=== PATIENT | female | born 1955 | race Caucasian/White ===

== ENCOUNTER 2018-05-12 13:14 | Emergency (ER) | payer OTHER ==
[2018-05-12 13:24] VITALS: BMI 25.7
[2018-05-12] MEDS ORDERED: SODIUM CHLORIDE 1,000 ML IV STA (13:26)
--- NOTE | 2018-05-12 13:31 | PDOC ---
History of Present Illness - General Chief Complaint: Pain Stated Complaint: ABD PAIN, URINARY SX Time Seen by Provider: 05/12/18 13:21 History Source: Patient Exam Limitations: No Limitations - History of Present Illness Travel History: No Initial Comments: 05/12/18 13:26 62 y/o femal with abdominal pain and dysuria since . Patient denies back pain, fever or chills. Vomited once. Decrease appetite. Took Advil yesterday. No sick contacts, cough, or diarrhea. Some discomfort in the chest/ esophagus, but no SOB, or radiation to neck, arm or back. Timing/Duration: reports: intermittent Quality: reports: mild Abdominal Pain Onset Location: reports: epigastric Pain Radiation: reports: no radiation Past History - Past Medical History Allergies/Adverse Reactions: Allergies Allergy/AdvReac Type Severity Reaction Status Date / Time Penicillins Allergy Verified 05/12/18 13:15 Home Medications: Ambulatory Orders Atorvastatin Calcium 20 mg PO HS 05/12/18 Ciprofloxacin [Cipro (Restricted To Id)] 250 mg PO BID #10 tablet 05/12/18 Metformin HCl [Glucophage] 500 mg PO BID 05/12/18 COPD: No Diabetes: Yes Hypercholesterolemia: Yes - Suicide/Smoking/Psychosocial Hx Smoking History: Never smoked Have you smoked in the past 12 months: No Hx Alcohol Use: No Review of Systems - Review of Systems Able to Perform ROS?: Yes Is the patient limited Nepalese proficient: No Constitutional: No: Chills, Fever HEENTM: No: Throat Pain Respiratory: No: Cough, Shortness of Breath Cardiac (ROS): Yes: Chest Pain ABD/GI: Yes: Vomiting. No: Diarrhea, Nausea Musculoskeletal: No: Back Pain All Other Systems: Reviewed and Negative *Physical Exam - Vital Signs Last Vital Signs Temp Pulse Resp BP Pulse Ox 100 F H 88 16 138/74 98 05/12/18 13:15 05/12/18 13:15 05/12/18 13:15 05/12/18 13:15 05/12/18 13:15 - Physical Exam General Appearance: Yes: Nourished, Appropriately Dressed. No: Apparent Distress HEENT: positive: EOMI, BENNY, Normal ENT Inspection, Normal Voice, Symmetrical, Pharynx Normal Neck: positive: Trachea midline, Normal Thyroid, Supple. negative: Tender, Rigid, Carotid bruit Respiratory/Chest: positive: Lungs Clear, Normal Breath Sounds. negative: Chest Tender, Respiratory Distress Cardiovascular: positive: Regular Rhythm, Regular Rate, S1, S2. negative: Edema , JVD, Murmur Vascular Pulses: Femoral (R): 4+, Femoral (L): 4+, Carotid (R): 4+, Carotid (L) : 4+, Dorsalis-Pedis (R): 4+, Doralis-Pedis (L): 4+ Gastrointestinal/Abdominal: positive: Normal Bowel Sounds, Flat, Soft. negative : Tender (no RLQ or LLQ tenderness, no RUQ or LUQ tenderness, +BS, no epigastric tenderness no CVA tenderness), Organomegaly, Pulsatile Mass Lymphatic: negative: Adenopathy, Tenderness, Other Musculoskeletal: positive: Normal Inspection. negative: CVA Tenderness Extremity: positive: Normal Capillary Refill, Normal Inspection, Normal Range of Motion. negative: Tender Integumentary: positive: Normal Color, Dry, Warm Neurologic: positive: service attendant II-XII NML intact, Fully Oriented, Alert, Normal Mood/ Affect, Normal Response, Motor Strength 5/5 Heart Score/ECG Review - ECG Intrepretation Rhythm: Regular Rhythm Comment:: 05/12/18 13:44 At 1339 NSR at 78 No STEMI - [place]: Normal - ST and T Early Repolarization: No Non Specific ST-T Wave changes: No - ECG Impressions Normal ECG: Yes ED Treatment Course - LABORATORY CBC & Chemistry Diagram: 05/12/18 13:50 05/12/18 14:28 Progress Note - Progress Note Progress Note: Pt is feeling better, appears to have UTI. WBC and rest of labs normal. I do not see any sign of pyelonephritis as this time. Will place on Cipro 250 mg 2x/day for 5 days Fluids, rest, Tylenol If worsen return to ER Pt is in agreement with plan. *DC/Admit/Observation/Transfer Diagnosis at time of Disposition: UTI (urinary tract infection) Qualifiers: Urinary tract infection type: acute cystitis Hematuria presence: without hematuria Qualified Code(s): N30.00 - Acute cystitis without hematuria - Discharge Dispostion Disposition: HOME Condition at time of disposition: Stable Decision to Admit order: No - Referrals - Patient Instructions Printed Discharge Instructions: DI for Urinary Tract Infection (UTI) Additional Instructions: Fluids, rest, Motrin/Tylenol Cipro 250 mg 2x/day for 5 days If worsen return to ER - Post Discharge Activity
[2018-05-12 13:34] LABS: PH,URINE 5.5 (4.5-8); URINE BILIRUBIN Negative (NEGATIVE); URINE GLUCOSE (UA) Negative (NEGATIVE); URINE KETONE 1+ (NEGATIVE); URINE NITRITE Negative (NEGATIVE); URINE PROTEIN Negative (NEGATIVE); URINE UROBILINOGEN 0.2 (0.2-1.0)
[2018-05-12 13:37] LABS: URINE APPEARANCE HAZY; URINE COLOR YELLOW; URINE LEUK ESTERASE TRACE (NEGATIVE)
[2018-05-12 14:01] LABS: BASO % 1.5 % (0-2.0); EOS % 0.5 % (0-4.5); HEMATOCRIT 37.6 % (32.4-45.2); HEMOGLOBIN 12.4 GM/dl (10.7-15.3); LYMPH % 15.7 % (8-40); MCH 26.2 pg (25.7-33.7); MCHC 32.9 g/dl (32.0-36.0); MEAN CELL VOLUME 79.5 fl (80-96); MEAN PLT VOLUME 8.7 fl (7.5-11.1); NEUT % 73.3 % (42.8-82.8); PLATELET COUNT 202 K/MM3 (134-434); RBC 4.73 M/mm3 (3.60-5.2); RDW 12.1 % (11.6-15.6)
[2018-05-12 14:02] LABS: AMORP URATES FEW /hpf (NONE SEEN); EPI CELLS FEW /HPF; URINE BACTERIA FEW /hpf (NEGATIVE)
[2018-05-12] MEDS ORDERED: ACETAMINOPHEN 325 MG TABLET (FP) PO ONE (14:25)
[2018-05-12] MEDS ORDERED: ACETAMINOPHEN 325 MG TABLET (FP) ONE (14:26)
[2018-05-12 15:14] LABS: ALBUMIN 3.5 g/dl (3.5-5.0); ALK PHOS 62 U/L (32-92); ANION GAP 7 (8-16); BILIRUBIN,TOTAL 1.6 mg/dl (0.2-1.0); BLOOD UREA NITROGEN 9 mg/dl (7-18); CALCIUM 8.5 mg/dl (8.4-10.2); CHLORIDE 105 mmol/L (98-107); CO2 24 mmol/L (22-28); GLUCOSE,RANDOM 136 mg/dl (74-106); POTASSIUM 3.7 mmol/L (3.5-5.1); SGOT/AST 18 U/L (10-42); SGPT/ALT 18 U/L (10-40); SODIUM 136 mmol/L (136-145); TOT PROT 6.1 g/dl (6.4-8.3)
[2018-05-12 15:21] LABS: CREATININE 0.5 mg/dl (0.6-1.3)
[2018-05-12 15:46] VITALS: PULSE 87; TEMP 99
[2018-05-12 15:47] VITALS: BP 104/53
[2018-05-12 16:36] LABS: LIPASE 166 U/L (73-393)
--- NOTE | 2018-05-15 13:08 | EKG ---
Test Reason : Blood Pressure : / mmHG Vent. Rate : 078 BPM Atrial Rate : 078 BPM P-R Int : 136 ms QRS Dur : 082 ms QT Int : 364 ms P-R-T Axes : 054 053 038 degrees QTc Int : 414 ms NORMAL SINUS RHYTHM NORMAL ECG NO PREVIOUS ECGS AVAILABLE Confirmed by GABRIELLE FLOR MD ([id number]) on 05/15/2018 1:08:13 PM Referred By: DR MATA Confirmed By:GABRIELLE FLOR MD
== END 2018-05-12 16:00 | disposition home or self-care (01) ==
LOC: FER 13:14
PROC: 3E03329 Introduction of Other Anti-infective into Peripheral Vein, Percutaneous Approach (ICD-10-PCS; principal; 2018-05-12)
PROC: 3E0337Z Introduction of Electrolytic and Water Balance Substance into Peripheral Vein, Percutaneous Approach (ICD-10-PCS; 2018-05-12)
DX: N30.00 Acute cystitis without hematuria (principal)
CPT/HCPCS: 36415; 80053; 81003; 81015; 82550; 83690; 84484; 85025; 87086; 87186; 93005; 99285-25; J7030